=== PATIENT | female | born 1955 | race Caucasian/White ===

== ENCOUNTER 2017-06-29 17:54 | Inpatient (IN) ==
[2017-06-29] MEDS ORDERED: Azithromycin 500 MG in D5% in Water 250 ML IVPB ONE (18:13)
[2017-06-29] MEDS ORDERED: Levofloxacin 750 MG/150 ML 750 MG/150 ML BAG IVPB ONE ×2 (18:18→21:09)
--- NOTE | 2017-06-29 18:19 | Emergency Department Note ---
Disposition Clinical Impression: Shortness of breath, Sepsis, Hypomagnesemia, Bronchitis Fever Qualifiers: Fever type: due to other condition Qualified Code(s): R50.81 - Fever presenting with conditions classified elsewhere Disposition: Admitted As Inpatient Condition: Good Time of Disposition: 21:34 Fever HPI - General Chief Complaint: ED Fever Stated Complaint: cough/fever/chills Nursing Notes Reviewed: Yes Vital Signs Reviewed: Yes - History of Present Illness HPI Narrative: Patient is a 8-year-old female presents via EMS for shortness of breath, fever. Patient has a past history for asthma, CHF, diabetes. Patient recently treated outpatient with Augmentin for UTI 1.5 weeks, patient also complained of productive cough of yellow sputum and shortness of breath times past 3 weeks but was seen 1 week ago and diagnosed with bronchitis. Patient reports fever 103.3 at home and feeling worse. EMS was called and patient brought to ED. - Related Data Home Medications Medication Instructions Recorded Confirmed Albuterol Neb [Proventil Neb] 2.5 mg IH TID 06/29/17 06/29/17 Albuterol Sulfate [Proair Hfa] 2 puff IH Q4H PRN 06/29/17 06/29/17 Alogliptin Benzoate [Alogliptin] 25 mg PO DAILY 06/29/17 06/29/17 Aspirin Enteric Coated [Aspirin EC] 81 mg PO DAILY 06/29/17 06/29/17 Azelastine 0.1% Nasal [place] 1 spray NS BID 06/29/17 06/29/17 [Astelin] Carvedilol 12.5 mg PO DAILY 06/29/17 06/29/17 Citalopram [CeleXA] 20 mg PO DAILY 06/29/17 06/29/17 Fluticasone Propionate [Flovent 1 puff IH BID 06/29/17 06/29/17 Hfa] Furosemide [Lasix] 20 mg PO BID 06/29/17 06/29/17 Lansoprazole [Prevacid] 30 mg PO DAILY 06/29/17 06/29/17 Loratadine [Claritin] 10 mg PO DAILY 06/29/17 06/29/17 Mirtazapine [Remeron] 45 mg PO HS 06/29/17 06/29/17 Mometasone/Formoterol [Dulera 200 2 puff IH BID 06/29/17 06/29/17 Mcg/5 Mcg Inhaler] Montelukast [Singulair] 10 mg PO HS 06/29/17 06/29/17 Potassium Citrate [Urocit-K] 10 meq PO BID 06/29/17 06/29/17 Quinapril HCl [Accupril] 40 mg PO DAILY 06/29/17 06/29/17 Previous Rx's Medication Instructions Recorded Vancomycin Oral Soln [Vancocin] 125 mg PO QID 13 Days 06/30/17 Diclofenac Sodium [Voltaren] 75 mg PO BID PRN #0 07/01/17 Lactobacillus [Culturelle] 2 each PO DAILY #30 07/01/17 Allergies Allergy/AdvReac Type Severity Reaction Status Date / Time Cefaclor [From Ceclor] AdvReac Hives Verified 06/29/17 18:09 clarithromycin [From Biaxin] AdvReac Hives Verified 06/29/17 18:09 morphine AdvReac Vomiting Verified 06/29/17 18:09 All systems ED: reviewed and negative except as stated. Review of Systems: As Per HPI Constitutional: Reports: fever Eyes: Denies: vision change Cardiovascular: Reports: dyspnea on exertion. Denies: chest pain, palpitations , syncope Respiratory: Reports: cough, dyspnea. Denies: wheezes, hemoptysis Gastrointestinal: Reports: nausea. Denies: abdominal pain, vomiting, diarrhea Genitourinary: Reports: urgency, dysuria Musculoskeletal: Denies: back pain, neck pain Integumentary: Denies: rash Neurological: Reports: weakness, vertigo (Periodic worse with movement). 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 Absent: scleral icterus - ENT ENT exam: mucous membranes dry, normal external ear exam, other (Tympanic membranes dull, erythemic, and has fluid behind them. No purulence, not bulging ) - Neck Neck exam: Present: normal inspection, full ROM, trachea midline. Absent: tenderness, meningismus, lymphadenopathy - Chest Chest inspection: Present: normal inspection, symmetric chest wall rise. Absent : tenderness, rash - Respiratory Respiratory exam: Present: normal lung sounds bilaterally. Absent: wheezes, stridor, accessory muscle use, prolonged expiratory phase - Cardiovascular Cardiovascular exam: Present: normal rhythm, tachycardia, normal heart sounds - Abdominal Exam Abdominal exam: Present: soft, Non-Tender, normal bowel sounds. Absent: tenderness, distention, guarding, rebound, rigidity - Neurological Exam Neurological exam: Present: alert, oriented X3, CN II-XII intact. Absent: motor sensory deficit - Skin Skin exam: Present: dry, intact, normal color, other (Patient is hot to the touch). Absent: rash, cyanosis, diaphoresis, pallor, mottled Course - Reevaluation(s) Reevaluation #1: Patient presents with fever, tachycardia and tachypnea. Patient also has recent treatment for UTI and bronchitis which may be possible source of infection. Early starting sepsis workup. Patient has history of CHF and plans to withhold fluid hydration to prevent fluid overload. Patient's blood pressure currently 101/69 and patient has no pallor or sign of anemia and this time Time: 18:45 Reevaluation #2: Patient's chest x-ray does not show pneumonia. Awaiting patient's urine to see if this is source of infection. Patient's on O2 to help O2 sats. Currently he is saturating at 93% and rest Patient states shortness of breath has resolved as long she does not exert herself. Time: 19:30 Reevaluation #3: Patient's labs shows hypomagnesemia. The patient on mag supplementation 2 g IV. Receiving DuoNeb therapy. Patient is on daily prednisone. Time: 19:46 Additional Reevaluation(s): 2130 hrs. Patient's been except for admission to the hospital. Patient understands workup evaluation results and accepts decision to admit. Patient's lungs sounds currently still clear. Patient's currently getting her second liter of fluid. Plan is to go liter by liter until patient gets her 30 mg a kilogram if her CHF can tolerate. - Consultations Consultation #1: Dr. Paz the hospitalist has accepted for admission Time: 21:20 Vital Signs Temperature 103.0 F H 06/29/17 18:09 Pulse Rate 103 06/29/17 18:09 Respiratory Rate 20 06/29/17 18:09 Blood Pressure 101/69 06/29/17 18:09 O2 Sat by Pulse Oximetry 95 06/29/17 18:09 Temperature 98.3 F 07/01/17 04:49 Pulse Rate 70 07/01/17 04:49 Respiratory Rate 24 07/01/17 11:16 Blood Pressure 107/53 07/01/17 04:49 O2 Sat by Pulse Oximetry 96 07/01/17 11:16 Oxygen Delivery Oxygen Delivery Nasal Cannula Fever - MDM Narrative Medical decision making narrative: Ms. Ramirez presented with fever, tachypnea, tachycardia, shortness of breath or concerns for sepsis secondary to possible pneumonia or UTI. Patient is on antibiotic treatment of Augmentin outpatient for UTI and also had productive cough yellow sputum and shortness of breath secondary to bronchitis for the past 3 weeks. Also had a patient's abnormal vitals, patient's workup showed an elevated white count 21.6, hypomagnesemia and elevated lactate of 2.6. Patient' s fluids of 30 mg milligrams per kilogram were initially withheld secondary to patient's history of CHF. Patient's BNP was negative and patient's lung sounds are clear. Patient started on IV fluid hydration but plan is to give a liter normal saline and then reassess to prevent fluid overload. Patient's lactic acid starting to decrease after first liter fluid currently 2.5. Patient's lung sounds still clear. Patient started on second liter IV bolus. Gen. clear source of infection but believed at this point patient's sepsis is secondary to failed outpatient treatment treatment for her UTI with a negative urinalysis secondary to antibiotic treatment or pneumonia that is unable to seeing currently secondary to patient being dry. Current plan still is admittance for treatment. Patient is allergic to cephalosporins and clarithromycin. Patient started on Levaquin and aztreonam after discussion with Dr. Paz to the hospitalist who accepted patient for admission. - Lab Data Lab results reviewed: Yes I reviewed the patient's lab results. Lab results narrative: Short CBC 06/29/17 Range/Units 18:47 WBC 21.6 H (4.3-11.1) K/mcL Hgb 13.1 (11.5-15.4) g/dL Hct 40.0 (35.3-44.9) % Plt Count 271 (140-400) K/mcL Neutrophils # 18.8 H (1.6-8.9) K/mcL BMP 06/29/17 Range/Units 18:47 Sodium 139 (136-145) mEq/L Potassium 3.5 (3.5-4.5) mEq/L Chloride 102 (98-109) mEq/L Carbon Dioxide 26 (19-29) mEq/L BUN 22 H (7-20) mg/dL Creatinine 1.09 (0.57-1.11) mg/dL Glucose 184 H (70-99) mg/dL Calcium 9.2 (8.6-10.8) mg/dL Urine 06/29/17 Range/Units 20:10 Urine Color Yellow (Yellow) Urine Clarity Clear (Clear) Urine pH 6.5 (5.0-8.0) pH Units Ur Specific [place] 1.021 (1.010-1.025) Urine Protein Negative (Neg-Trace) mg/dL Urine Glucose (UA) Normal (Normal) mg/dL Result diagrams: 07/01/17 11:08 06/30/17 05:35 Lab Results 06/29/17 06/29/17 06/29/17 Range/Units 18:47 18:47 18:47 WBC 21.6 H (4.3-11.1) K/mcL RBC 4.75 (3.82-4.97) M/mcL Hgb 13.1 (11.5-15.4) g/dL Hct 40.0 (35.3-44.9) % MCV 84.2 (83.0-100.0) fL MCH 27.6 L (28.0-33.3) pg MCHC 32.8 (31.6-35.5) g/dL RDW 15.3 H (11.5-14.5) % Plt Count 271 (140-400) K/mcL MPV 9.6 (9.4-12.4) fL Immature Gran % 0.9 (0-4) % Seg Neutrophils % 86.8 % Lymphocytes % 5.5 % Monocytes % 4.9 % Eosinophils % 1.7 % Basophils % 0.2 % Neutrophils # 18.8 H (1.6-8.9) K/mcL Lymphocytes # 1.2 (0.6-4.6) K/mcL Monocytes # 1.1 (0.0-1.3) K/mcL Eosinophils # 0.4 (0.0-0.6) K/mcL Basophils # 0.1 (0.0-0.2) K/mcL APTT 27.6 (26.0-36.0) Seconds Sodium 139 (136-145) mEq/L Potassium 3.5 (3.5-4.5) mEq/L Chloride 102 (98-109) mEq/L Carbon Dioxide 26 (19-29) mEq/L BUN 22 H (7-20) mg/dL Creatinine 1.09 (0.57-1.11) mg/dL Est GFR ( Amer) > 60 (> 60) Est GFR (Non-Af Amer) 51 L (> 60) BUN/Creatinine Ratio 20 (6-26) Glucose 184 H (70-99) mg/dL POC Glucose (58-89) Calculated Osmolality 296 (280-300) Lactic Acid (0.5-2.2) mmol/L Calcium 9.2 (8.6-10.8) mg/dL Phosphorus 1.5 L (2.3-4.7) mg/dL Magnesium 1.2 L (1.6-2.6) mg/dL Total Bilirubin (0.2-1.2) mg/dL Direct Bilirubin (0.0-0.5) mg/dL Indirect Bilirubin (0.0-1.2) mg/dL AST (5-34) Units/L ALT (0-55) Units/L Alkaline Phosphatase (38-126) Units/L B-Natriuretic Peptide (0-100) pg/mL Serum Total Protein (6.0-8.3) g/dL Albumin (3.5-5.0) g/dL Globulin (2.4-3.5) g/dL Albumin/Globulin Ratio (1.1-2.2) Procalcitonin (<=0.10) ng/mL Urine Color (Yellow) Urine Clarity (Clear) Urine pH (5.0-8.0) pH Units Ur Specific [place] (1.010-1.025) Urine Protein (Neg-Trace) mg/dL Urine Glucose (UA) (Normal) mg/dL Urine Ketones (Negative) mg/dL Urine Blood (Negative) Urine Nitrite (Negative) Urine Bilirubin (Negative) Urine Urobilinogen (Normal) mg/dL Ur Leukocyte Esterase (Negative) Ur Culture Indicated? (NO) 06/29/17 06/29/17 06/29/17 Range/Units 18:47 18:47 18:47 WBC (4.3-11.1) K/mcL RBC (3.82-4.97) M/mcL Hgb (11.5-15.4) g/dL Hct (35.3-44.9) % MCV (83.0-100.0) fL MCH (28.0-33.3) pg MCHC (31.6-35.5) g/dL RDW (11.5-14.5) % Plt Count (140-400) K/mcL MPV (9.4-12.4) fL Immature Gran % (0-4) % Seg Neutrophils % % Lymphocytes % % Monocytes % % Eosinophils % % Basophils % % Neutrophils # (1.6-8.9) K/mcL Lymphocytes # (0.6-4.6) K/mcL Monocytes # (0.0-1.3) K/mcL Eosinophils # (0.0-0.6) K/mcL Basophils # (0.0-0.2) K/mcL APTT (26.0-36.0) Seconds Sodium (136-145) mEq/L Potassium (3.5-4.5) mEq/L Chloride (98-109) mEq/L Carbon Dioxide (19-29) mEq/L BUN (7-20) mg/dL Creatinine (0.57-1.11) mg/dL Est GFR ( Amer) (> 60) Est GFR (Non-Af Amer) (> 60) BUN/Creatinine Ratio (6-26) Glucose (70-99) mg/dL POC Glucose (58-89) Calculated Osmolality (280-300) Lactic Acid 2.6 H (0.5-2.2) mmol/L Calcium (8.6-10.8) mg/dL Phosphorus (2.3-4.7) mg/dL Magnesium (1.6-2.6) mg/dL Total Bilirubin 0.5 (0.2-1.2) mg/dL Direct Bilirubin 0.2 (0.0-0.5) mg/dL Indirect Bilirubin 0.3 (0.0-1.2) mg/dL AST 24 (5-34) Units/L ALT 36 (0-55) Units/L Alkaline Phosphatase 127 H (38-126) Units/L B-Natriuretic Peptide < 10 (0-100) pg/mL Serum Total Protein 7.2 (6.0-8.3) g/dL Albumin 3.3 L (3.5-5.0) g/dL Globulin 3.9 H (2.4-3.5) g/dL Albumin/Globulin Ratio 0.8 L (1.1-2.2) Procalcitonin (<=0.10) ng/mL Urine Color (Yellow) Urine Clarity (Clear) Urine pH (5.0-8.0) pH Units Ur Specific [place] (1.010-1.025) Urine Protein (Neg-Trace) mg/dL Urine Glucose (UA) (Normal) mg/dL Urine Ketones (Negative) mg/dL Urine Blood (Negative) Urine Nitrite (Negative) Urine Bilirubin (Negative) Urine Urobilinogen (Normal) mg/dL Ur Leukocyte Esterase (Negative) Ur Culture Indicated? (NO) 06/29/17 06/29/17 06/29/17 Range/Units 20:07 20:10 22:39 WBC (4.3-11.1) K/mcL RBC (3.82-4.97) M/mcL Hgb (11.5-15.4) g/dL Hct (35.3-44.9) % MCV (83.0-100.0) fL MCH (28.0-33.3) pg MCHC (31.6-35.5) g/dL RDW (11.5-14.5) % Plt Count (140-400) K/mcL MPV (9.4-12.4) fL Immature Gran % (0-4) % Seg Neutrophils % % Lymphocytes % % Monocytes % % Eosinophils % % Basophils % % Neutrophils # (1.6-8.9) K/mcL Lymphocytes # (0.6-4.6) K/mcL Monocytes # (0.0-1.3) K/mcL Eosinophils # (0.0-0.6) K/mcL Basophils # (0.0-0.2) K/mcL APTT (26.0-36.0) Seconds Sodium (136-145) mEq/L Potassium (3.5-4.5) mEq/L Chloride (98-109) mEq/L Carbon Dioxide (19-29) mEq/L BUN (7-20) mg/dL Creatinine (0.57-1.11) mg/dL Est GFR ( Amer) (> 60) Est GFR (Non-Af Amer) (> 60) BUN/Creatinine Ratio (6-26) Glucose (70-99) mg/dL POC Glucose (58-89) Calculated Osmolality (280-300) Lactic Acid 2.5 H (0.5-2.2) mmol/L Calcium (8.6-10.8) mg/dL Phosphorus (2.3-4.7) mg/dL Magnesium (1.6-2.6) mg/dL Total Bilirubin (0.2-1.2) mg/dL Direct Bilirubin (0.0-0.5) mg/dL Indirect Bilirubin (0.0-1.2) mg/dL AST (5-34) Units/L ALT (0-55) Units/L Alkaline Phosphatase (38-126) Units/L B-Natriuretic Peptide (0-100) pg/mL Serum Total Protein (6.0-8.3) g/dL Albumin (3.5-5.0) g/dL Globulin (2.4-3.5) g/dL Albumin/Globulin Ratio (1.1-2.2) Procalcitonin 1.87 H (<=0.10) ng/mL Urine Color Yellow (Yellow) Urine Clarity Clear (Clear) Urine pH 6.5 (5.0-8.0) pH Units Ur Specific [place] 1.021 (1.010-1.025) Urine Protein Negative (Neg-Trace) mg/dL Urine Glucose (UA) Normal (Normal) mg/dL Urine Ketones Negative (Negative) mg/dL Urine Blood Negative (Negative) Urine Nitrite Negative (Negative) Urine Bilirubin Negative (Negative) Urine Urobilinogen Normal (Normal) mg/dL Ur Leukocyte Esterase Negative (Negative) Ur Culture Indicated? NO (NO) 06/29/17 Range/Units 23:06 WBC (4.3-11.1) K/mcL RBC (3.82-4.97) M/mcL Hgb (11.5-15.4) g/dL Hct (35.3-44.9) % MCV (83.0-100.0) fL MCH (28.0-33.3) pg MCHC (31.6-35.5) g/dL RDW (11.5-14.5) % Plt Count (140-400) K/mcL MPV (9.4-12.4) fL Immature Gran % (0-4) % Seg Neutrophils % % Lymphocytes % % Monocytes % % Eosinophils % % Basophils % % Neutrophils # (1.6-8.9) K/mcL Lymphocytes # (0.6-4.6) K/mcL Monocytes # (0.0-1.3) K/mcL Eosinophils # (0.0-0.6) K/mcL Basophils # (0.0-0.2) K/mcL APTT (26.0-36.0) Seconds Sodium (136-145) mEq/L Potassium (3.5-4.5) mEq/L Chloride (98-109) mEq/L Carbon Dioxide (19-29) mEq/L BUN (7-20) mg/dL Creatinine (0.57-1.11) mg/dL Est GFR ( Amer) (> 60) Est GFR (Non-Af Amer) (> 60) BUN/Creatinine Ratio (6-26) Glucose (70-99) mg/dL POC Glucose 183 H (58-89) Calculated Osmolality (280-300) Lactic Acid (0.5-2.2) mmol/L Calcium (8.6-10.8) mg/dL Phosphorus (2.3-4.7) mg/dL Magnesium (1.6-2.6) mg/dL Total Bilirubin (0.2-1.2) mg/dL Direct Bilirubin (0.0-0.5) mg/dL Indirect Bilirubin (0.0-1.2) mg/dL AST (5-34) Units/L ALT (0-55) Units/L Alkaline Phosphatase (38-126) Units/L B-Natriuretic Peptide (0-100) pg/mL Serum Total Protein (6.0-8.3) g/dL Albumin (3.5-5.0) g/dL Globulin (2.4-3.5) g/dL Albumin/Globulin Ratio (1.1-2.2) Procalcitonin (<=0.10) ng/mL Urine Color (Yellow) Urine Clarity (Clear) Urine pH (5.0-8.0) pH Units Ur Specific [place] (1.010-1.025) Urine Protein (Neg-Trace) mg/dL Urine Glucose (UA) (Normal) mg/dL Urine Ketones (Negative) mg/dL Urine Blood (Negative) Urine Nitrite (Negative) Urine Bilirubin (Negative) Urine Urobilinogen (Normal) mg/dL Ur Leukocyte Esterase (Negative) Ur Culture Indicated? (NO) - Radiology Data Radiology results reviewed: Yes I reviewed the patient's radiology results. Chest X-Ray 06/29/17 18:14 IMPRESSION: No acute process. D/ / Michelle Hair MD / Michelle Hair MD Interpreting Provider: Michelle Hair MD - EKG Data EKG attestation: Yes I reviewed and interpreted this EKG. EKG results narrative: EKG taken 06/29/2017 at 1904 hrs. shows a sinus tachycardia at a rate of 10 4 bpm. No QRS widening or QT prolongation no ST elevations or depressions in any leads. Patient has poor R-wave progression lateral leads and previous EKG for comparison taken 06/22/2017 shows a sinus rhythm with same morphology as today' s. Today's EKG just a little faster Attestation Statement - Attestation Attestation: I examined this patient and my medical decision-making was reviewed with the Resident Physician. I agree with the documented findings, disposition and treatment plan as described except to the extent set forth below. Febrile, +SIRS, negative qSOFA. Has some respiratory symptoms, CXR negative. Also has urinary sx, UA neg but is on abx, which could mask findings of UTI on UA. The possibility of outpatient rx failure of UTI is high on the list of possibilities, rx chosen with this in mind.
[2017-06-29 19:00] LABS: Basophils # 0.1 K/mcL (0.0-0.2); Basophils % 0.2 %; Eosinophils # 0.4 K/mcL (0.0-0.6); Eosinophils % 1.7 %; Hemoglobin 13.1 g/dL (11.5-15.4); Immature Granulocytes % 0.9 % (0-4); Lymphocytes # 1.2 K/mcL (0.6-4.6); Lymphocytes % 5.5 %; Mean Corpuscular HGB Conc 32.8 g/dL (31.6-35.5); Mean Corpuscular Hemoglobin 27.6 pg (28.0-33.3); Mean Corpuscular Volume 84.2 fL (83.0-100.0); Mean Platelet Volume 9.6 fL (9.4-12.4); Monocytes # 1.1 K/mcL (0.0-1.3); Monocytes % 4.9 %; Neutrophils # 18.8 K/mcL (1.6-8.9); Platelet Count 271 K/mcL (140-400); Red Blood Count 4.75 M/mcL (3.82-4.97); Red Cell Distribution Width 15.3 % (11.5-14.5); Segmented Neutrophils % 86.8 %
[2017-06-29 19:14] LABS: BUN/Creatinine Ratio 20 (6-26); Blood Urea Nitrogen 22 mg/dL (7-20); Calcium 9.2 mg/dL (8.6-10.8); Carbon Dioxide 26 mEq/L (19-29); Chloride 102 mEq/L (98-109); Glucose 184 mg/dL (70-99); Magnesium 1.2 mg/dL (1.6-2.6); Osmolality,Calculated 296 (280-300); Phosphorous 1.5 mg/dL (2.3-4.7); Potassium 3.5 mEq/L (3.5-4.5); Sodium 139 mEq/L (136-145); eGFR For African Americans > 60 (> 60); eGFR For Non-African Americans 51 (> 60)
[2017-06-29] MEDS ORDERED: 0.9 % Sodium Chloride 1,000 ML IVC ONE ×2 (19:34→21:11)
[2017-06-29] MEDS ORDERED: *HR* Promethazine 25 MG/ML VIAL IVP ONE (19:41)
[2017-06-29] MEDS ORDERED: Ipratropium/Albuterol Neb 3 ML IH ONE (19:42)
[2017-06-29 20:21] LABS: Bilirubin,Urine Negative (Negative); Blood,Urine Negative (Negative); Clarity,Urine Clear (Clear); Color,Urine Yellow (Yellow); Glucose,Urine (UA) Normal (Normal); Ketones,Urine Negative (Negative); Leukocyte Esterase,Urine Negative (Negative); Nitrite,Urine Negative (Negative); PH,Urine 6.5 pH Units (5.0-8.0); Protein,Urine Negative (Neg-Trace); Specific Gravity,Urine 1.021 (1.010-1.025); Urobilinogen,Urine Normal (Normal)
[2017-06-29] MEDS ORDERED: Gentamicin 400 MG in 0.9 % Sodium Chloride 100 ML IVPB ONE (21:09)
[2017-06-29] MEDS ORDERED: Ibuprofen 400 MG TABLET PO ONE (21:11)
[2017-06-29] MEDS ORDERED: Acetaminophen 325 MG TABLET PO PRN (21:51)
[2017-06-29] MEDS ORDERED: Naloxone 0.4 MG/ML INJ IVP PRN (21:51)
[2017-06-29] MEDS ORDERED: Ondansetron ODT 4 MG TAB.RAPDIS SL PRN (21:51)
[2017-06-29] MEDS ORDERED: Ibuprofen 400 MG TABLET PO PRN (21:51)
[2017-06-29] MEDS ORDERED: *HR* Dextrose 50 % in Water (Syg) 50 ML SYRINGE IVP PRN (21:54)
[2017-06-29] MEDS ORDERED: Dextrose Gel 15 GM PO PRN ×2 (21:54)
[2017-06-29] MEDS ORDERED: D5% in Water 1,000 ML IVC PRN (21:54)
[2017-06-29] MEDS ORDERED: Aztreonam 1,000 MG in D5% in Water (Mini-Bag+) 100 ML IVPB ONE (22:00)
[2017-06-29] MEDS ORDERED: 0.9 % Sodium Chloride 1,000 ML IVC SCH (22:00)
--- NOTE | 2017-06-29 22:05 | Internal Med History&Physical ---
<Alo Ambriz - Last Filed: 06/29/17 22:01> Date of Encounter: 06/29/17 Time of Encounter: 22:01 Assessment and Plan (1) Sepsis Current visit: Yes Status: Acute 62 -year-old female presents with chief complaint of fever Patient is tachycardic, fever 103, wbc 26 reports receiving amoxicillin for UTI and Augmentin for bronchitis in the past 2 weeks. Reports foul-smelling new onset diarrhea this morning. Chest x-ray negative. Lung exam clear Urinalysis negative for infection Source of infection: PNA, UTI, infectious diarreha (c-diff) Requiring 2 L supplemental oxygen Plan: Patient will be on Levaquin and aztreonam allergies allergic to b-lactams Stool study Continue supplemental oxygen CBC, BMP in the morning Procalcitonin Qualifiers: Sepsis type: sepsis due to unspecified organism Qualified Code(s): A41.9 - Sepsis, unspecified organism (2) PNA (pneumonia) Current visit: Yes Status: Suspected Patient states that for the past week she has had worsening shortness of breath and productive yellow sputum. One week ago she was started on Augmentin for bronchitis. States her symptoms have not improved. Currently on 2 L oxygen. She does not use supplemental oxygen at home. Patient has history of sleep apnea and is compliant with CPAP. previous tobacco use 25 years ago with 4year pack history. Plan: Patient will be on aztreonam on Levaquin. Continue monitoring respiratory status. PROcalcitonin Wean off oxygen, may need 6min walk continue home inhaler and start duoneb. Qualifiers: Pneumonia type: due to unspecified organism Laterality: unspecified laterality Lung location: unspecified part of lung Qualified Code(s): J18.9 - Pneumonia, unspecified organism (3) UTI (urinary tract infection) Current visit: Yes Status: Suspected Patient was treated for UTI 2 weeks ago with amoxicillin At that time she had symptoms of dysuria, foul-smelling urine Currently she denies these symptoms Urinalysis is negative for UTI but this could be secondary to current antibiotic use. This is part of the differential diagnosis for sepsis however less likely. Plan: Patient will be on Levaquin and aztreonam. Qualifiers: Urinary tract infection type: acute cystitis Hematuria presence: without hematuria Qualified Code(s): N30.00 - Acute cystitis without hematuria (4) Diabetes Current visit: Yes Status: Chronic hx of DM2 last hgA1c 6.2 controlled plan: ACHS diet with low dose SSI. Qualifiers: Diabetes mellitus type: type 2 Diabetes mellitus complication status: with unspecified complications Diabetes mellitus residential insulin use: without residential use Qualified Code(s): E11.8 - Type 2 diabetes mellitus with unspecified complications (5) Hypertension Current visit: Yes Status: Chronic presented wiht BP in 100s systolic which improved to 120s sytolic with 2L NS plan: continue home medications Qualifiers: Hypertension type: essential hypertension Qualified Code(s): I10 - Essential (primary) hypertension (6) CHF (congestive heart failure) Current visit: Yes Status: Chronic hx of diastolic CHF not inexacerbation: no lung crackles or LE edema BNP WNL plan: continue home jules inhibitor hold lasix as patient is likley volume depleted from diarrhea IVF running at 100cc/ hr will receive total of 3000 mL (includes ER fluid bolus ) Qualifiers: Congestive heart failure type: diastolic Congestive heart failure chronicity: chronic Qualified Code(s): I50.32 - Chronic diastolic (congestive ) heart failure (7) Hypomagnesemia Current visit: Yes Status: Acute 2nd to diarrhea plan: replacing recheck in am (8) DVT prophylaxis Current visit: Yes Status: Acute heparin SQ Internal Medicine - H&P: HPI Chief complaint: fever Admitted From: Home Plans for Post Hospital Care: Home History of present illness: Ms. Ramirez is a 62 year old female presents with chief complaint of fever. Patient states 2 weeks ago she was diagnosed with UTI and started on amoxicillin which improved her symptoms of dysuria. Furthermore one week ago patient had shortness of breath increased yellow productive sputum and diagnosed with bronchitis and started on Augmentin. In the past week patient states her symptoms of shortness of breath, productive sputum have not improved with Augmentin. This afternoon patient started having intense chills, diaphoresis and checked her temperature which was 103.3. She also had multiple bouts of diarrhea described as watery, foul-smelling, non-mucousy, nonbloody. Patient denies headache, confusion blurry vision, ear pain, sore throat, rhinorrhea, neck pain, chest pain, palpitations, abdominal pain, leg pain, rash , open sores or wounds, back pain, dysuria, urinary frequency, urinary urgency, numbness, tingling, or lower extremity swelling. Past Med Surg Social Fam HX - Past Medical History Medical history: asthma, CHF, diabetes, GERD, hypertension, other (sleep apnea) Psychiatric history: no psych history - Past Surgical History Surgical History: cholecystectomy, other (bening ovarin tumor resceted, benin lung nodule resected, tonsillectomy ) - Social History Smoking Status: Never smoker Smokeless Tobacco Status: No Alcohol use: none Drug use: none - Family History Father Hx Family Cardiac Disorders: Yes Internal Medicine - H&P: Meds Albuterol Neb [Proventil Neb] 2.5 mg IH TID 06/29/17 [History] Albuterol Sulfate [Proair Hfa] 2 puff IH Q4H PRN 06/29/17 [History] Alogliptin Benzoate [Alogliptin] 25 mg PO DAILY 06/29/17 [History] Amoxicillin/Clavulanate [Augmentin] 875 mg PO BID 06/29/17 [History] Aspirin Enteric Coated [Aspirin EC] 81 mg PO DAILY 06/29/17 [History] Azelastine 0.1% Nasal [place] [Astelin] 1 spray NS BID 06/29/17 [History] Carvedilol 12.5 mg PO DAILY 06/29/17 [History] Citalopram [CeleXA] 20 mg PO DAILY 06/29/17 [History] Diclofenac Sodium [Voltaren] 75 mg PO BID 06/29/17 [History] Fluticasone Propionate [Flovent Hfa] 1 puff IH BID 06/29/17 [History] Furosemide [Lasix] 20 mg PO BID 06/29/17 [History] Lansoprazole [Prevacid] 30 mg PO DAILY 06/29/17 [History] Loratadine [Claritin] 10 mg PO DAILY 06/29/17 [History] Mirtazapine [Remeron] 45 mg PO HS 06/29/17 [History] Mometasone/Formoterol [Dulera 200 Mcg/5 Mcg Inhaler] 2 puff IH BID 06/29/17 [ History] Montelukast [Singulair] 10 mg PO HS 06/29/17 [History] Potassium Citrate [Urocit-K] 10 meq PO BID 06/29/17 [History] Quinapril HCl [Accupril] 40 mg PO DAILY 06/29/17 [History] 3 Allergy/AdvReac Type Severity Reaction Status Date / Time Cefaclor [From Ceclor] AdvReac Hives Verified 06/29/17 18:09 clarithromycin [From Biaxin] AdvReac Hives Verified 06/29/17 18:09 morphine AdvReac Vomiting Verified 06/29/17 18:09 All Systems PM: A 10-system review of systems was performed and is negative for pertinent findings except as documented above in the HPI. - Constitutional Vitals: Temp Pulse Resp BP Pulse Ox 102.5 F H 99 20 119/62 95 06/29/17 20:54 06/29/17 20:54 06/29/17 20:54 06/29/17 20:54 06/29/17 20:54 - Other Additional findings: General: Alert and oriented to place time and situation. Without distress, diaphoretic HEENT: Head atraumatic, normocephalic, EOMI, PERRLA, neck nontender to palpation , absent Lymphadenopathy, Moist Mucous Membranes, Heart: Sinus tachycardia without murmur Lungs: Clear to auscultation bilaterally Abdomen: Soft nontender, nondistended positive bowel sounds Skin: Absent rash, absent open sores or wounds Back: Nontender to palpation Extremities: Absent pedal edema, Neuro: Cranial nerves II through XII intact, sensation equal bilaterally, strength upper and lower extremity 5/5, alert oriented 3 Vascular: Pedal and radial pulses 2 out of 4 Internal Med - H&P Results - Labs CBC & Chem 7: 06/29/17 18:47 06/29/17 18:47 Labs: Short CBC 06/29/17 Range/Units 18:47 WBC 21.6 H (4.3-11.1) K/mcL Hgb 13.1 (11.5-15.4) g/dL Hct 40.0 (35.3-44.9) % Plt Count 271 (140-400) K/mcL Neutrophils # 18.8 H (1.6-8.9) K/mcL BMP 06/29/17 18:47 Sodium 139 Potassium 3.5 Chloride 102 Carbon Dioxide 26 BUN 22 H Creatinine 1.09 Glucose 184 H Calcium 9.2 Urine 06/29/17 Range/Units 20:10 Urine Color Yellow (Yellow) Urine Clarity Clear (Clear) Urine pH 6.5 (5.0-8.0) pH Units Ur Specific [place] 1.021 (1.010-1.025) Urine Protein Negative (Neg-Trace) mg/dL Urine Glucose (UA) Normal (Normal) mg/dL - Impressions ITS Impressions Chest X-Ray 06/29/17 18:14 IMPRESSION: No acute process. D/ / Michelle Hair MD / Michelle Hair MD Interpreting Provider: Michelle Hair MD <Fahad Paz - Last Filed: 06/29/17 23:34> Date of Encounter: 06/29/17 Internal Medicine - H&P: HPI History of present illness: Ms. Ramirez is a 62 year old female All Systems PM: A 10-system review of systems was performed and is negative for pertinent findings except as documented above in the HPI. - Constitutional Vitals: Temp Pulse Resp BP Pulse Ox 98.7 F 88 19 106/56 94 06/29/17 23:18 06/29/17 23:18 06/29/17 23:18 06/29/17 23:18 06/29/17 23:18 Internal Med - H&P Results - Labs CBC & Chem 7: 06/29/17 18:47 06/29/17 18:47 - Attending Attestation I examined this patient and my medical decision-making was reviewed with the Resident Physician, Dr. Alo Middleton. I agree with the documented findings, disposition and treatment plan as described except to the extent set forth below. I have independently obtained history and examined the patient and my findings are summarized below: Patient presented to the hospital for evaluation of shortness of breath and high fever. On exam she is in no acute distress, speaking in full sentences. Heart is regular. Lungs are clear. Abdomen is obese, soft, nontender Assessment: Severe sepsis secondary to either bronchitis pneumonia or less likely severe C. difficile colitis. Plan: We will admit the patient to our service. We will treat her with IV fluids 30 mL per KG. Broad spectrum IV antibiotics with Levaquin and aztreonam. Consider adding oral vancomycin for severe C. difficile. Patient reported some diarrhea which now has stopped but she does have fever, elevated white count and antibiotic use in the last 2 weeks.
[2017-06-29] MEDS: *HR* Heparin 5,000 UNIT/ML VIAL SQ SCH (23:07)
[2017-06-29] MEDS: Aztreonam 1,000 MG in D5% in Water (Mini-Bag+) 100 ML IVPB SCH (23:08)
[2017-06-29 23:56] LABS: Albumin 3.3 g/dL (3.5-5.0); Albumin/Globulin Ratio 0.8 (1.1-2.2); Bilirubin,Direct 0.2 mg/dL (0.0-0.5); Bilirubin,Indirect 0.3 mg/dL (0.0-1.2); Bilirubin,Total 0.5 mg/dL (0.2-1.2); Globulin 3.9 g/dL (2.4-3.5); Total Protein 7.2 g/dL (6.0-8.3)
[2017-06-29] MEDS: Vancomycin Oral Soln 250 MG/5 ML UDC PO SCH (23:58)
[2017-06-30] MEDS ORDERED: 0.9 % Sodium Chloride 1,000 ML IVC ONE (00:37)
[2017-06-30] MEDS: Albuterol 2.5 MG/3 ML NEBULIZER IH SCH ×3 (00:42→16:56)
[2017-06-30] MEDS: Ipratropium/Albuterol Neb 3 ML IH SCH ×4 (03:49→23:15)
[2017-06-30] MEDS: *HR* Heparin 5,000 UNIT/ML VIAL SQ SCH ×3 (05:45→20:35)
[2017-06-30 06:06] LABS: Hematocrit 38.2 % (35.3-44.9); Hemoglobin 12.2 g/dL (11.5-15.4); Mean Corpuscular HGB Conc 31.9 g/dL (31.6-35.5); Mean Corpuscular Hemoglobin 27.4 pg (28.0-33.3); Mean Corpuscular Volume 85.7 fL (83.0-100.0); Mean Platelet Volume 9.7 fL (9.4-12.4); Platelet Count 262 K/mcL (140-400); Red Blood Count 4.46 M/mcL (3.82-4.97); Red Cell Distribution Width 15.7 % (11.5-14.5)
[2017-06-30 06:22] LABS: BUN/Creatinine Ratio 17 (6-26); Blood Urea Nitrogen 15 mg/dL (7-20); Calcium 8.5 mg/dL (8.6-10.8); Carbon Dioxide 24 mEq/L (19-29); Chloride 109 mEq/L (98-109); Glucose 113 mg/dL (70-99); Osmolality,Calculated 294 (280-300); Potassium 3.6 mEq/L (3.5-4.5); Sodium 141 mEq/L (136-145); eGFR For African Americans > 60 (> 60); eGFR For Non-African Americans > 60 (> 60)
[2017-06-30 06:29] LABS: Eosinophils # 0.5 K/mcL (0.0-0.6); Lymphocytes # 6.7 K/mcL (0.6-4.6); Neutrophils # 18.1 K/mcL (1.6-8.9); Platelet Estimate Normal (Normal); Reactive Lymphocytes Present (Not Present)
[2017-06-30] MEDS ORDERED: Pantoprazole 40 MG VIAL IVP SCH (06:30)
[2017-06-30] MEDS ORDERED: Furosemide 20 MG TABLET PO SCH (08:00)
[2017-06-30] MEDS: Lisinopril 20 MG TABLET PO SCH (08:40)
[2017-06-30] MEDS: Aztreonam 1,000 MG in D5% in Water (Mini-Bag+) 100 ML IVPB SCH (08:40)
[2017-06-30] MEDS: Potassium Citrate 10 MEQ TABLET.ER PO SCH ×2 (08:40→20:35)
[2017-06-30] MEDS: Aspirin Enteric Coated 81 MG Tablet PO SCH (08:40)
[2017-06-30] MEDS: Insulin LISPRO 300 UNITS/3 ML VIAL SQ SCH ×3 (08:41→16:41)
[2017-06-30 11:51] LABS: C.difficile Toxin A/B by PCR See reflex test (Not detect); Campylobacter by PCR Not detected (Not detect)
[2017-06-30 11:52] LABS: Adenovirus F 40/41 PCR Not detected (Not detect); Astrovirus PCR Not detected (Not detect); Cryptosporidium by PCR Not detected (Not detect); Cyclospora cayetanensis PCR Not detected (Not detect); E. coli O157 by PCR Not detected (Not detect); Entamoeba histolytica PCR Not detected (Not detect); Enteroaggregative E.coli(EAEC) Not detected (Not detect); Enteropathogenic E.coli(EPEC) ***DETECTED*** (Not detect); Enterotoxigenic E.coli (ETEC) Not detected (Not detect); Giardia lamblia PCR Not detected (Not detect); Norovirus GI/GII PCR Not detected (Not detect); Plesiomonas shigelloides PCR Not detected (Not detect); Rotavirus A PCR Not detected (Not detect); Salmonella PCR Not detected (Not detect); Sapovirus PCR Not detected (Not detect); Shig/EnteroinvasiveE coli EIEC Not detected (Not detect); Shigalike tox-prod E coli STEC Not detected (Not detect); Vibrio PCR Not detected (Not detect); Vibrio cholerae PCR Not detected (Not detect); Yersinia enterocolitica PCR Not detected (Not detect)
[2017-06-30] MEDS: Vancomycin Oral Soln 250 MG/5 ML UDC PO SCH (13:06)
--- NOTE | 2017-06-30 15:33 | Electrocardiograph Report ---
[place] [id number] Test Date: 2017-06-29 Pat Name: Vivian Ramirez Department: 0 Room: 2NE34 Gender: F [employer] Worker: Ambrocio : 1955 Requested By: Irvin Feliciano Order Number: [id number] Reading MD: Betzy Valentin Measurements Intervals [place] Rate: 104 P: 34 LA: 138 QRS: 19 QRSD: 92 T: 28 QT: 343 QTc: 403 Interpretive Statements SINUS TACHYCARDIA MINIMAL ST DEPRESSION ABNORMAL RHYTHM ECG Electronically Signed On 06-30-2017 15:31:24 EDT by Betzy Valentin
--- NOTE | 2017-06-30 15:56 | Internal Med Progress Note ---
Date of Encounter: 06/30/17 Time of Encounter: 15:56 - Assessment and plan (1) C. difficile colitis Current Visit: Yes Status: Acute Assessment and plan: Patient has history of diarrhea that was performed. Stool for C. difficile was positive. Patient has severe C. difficile as evidenced by elevated white count. Patient has been started on by mouth vancomycin. Continue the same. Probiotics. High risk due to risk of worsening sepsis and the need for antibody treatment. Patient is at risk of complications including ileus due to C. difficile. (2) Sepsis Current Visit: Yes Status: Acute Assessment and plan: Sepsis on presentation due to C. difficile. Currently improving. Management as above. Qualifiers: Sepsis type: sepsis due to unspecified organism Qualified Code(s): A41.9 - Sepsis, unspecified organism (3) Asthma Current Visit: Yes Status: Chronic Assessment and plan: Breathing treatments. Continue home medications. Qualifiers: Asthma severity: mild persistent Asthma complication type: uncomplicated Qualified Code(s): J45.30 - Mild persistent asthma, uncomplicated (4) Hypomagnesemia Current Visit: Yes Status: Acute Assessment and plan: Replaced (5) Diabetes Current Visit: Yes Status: Chronic Assessment and plan: Controlled blood sugar. Continue current medications. Qualifiers: Diabetes mellitus type: type 2 Diabetes mellitus complication status: without complication Diabetes mellitus rat exterminator insulin use: without rat exterminator use Qualified Code(s): E11.9 - Type 2 diabetes mellitus without complications (6) Hypertension Current Visit: Yes Status: Chronic Assessment and plan: Controlled blood pressure. Continues current medications. Qualifiers: Hypertension type: essential hypertension Qualified Code(s): I10 - Essential (primary) hypertension - Subjective Interval history: Patient states that she feels better than yesterday. Her diarrhea stopped yesterday. Her C. difficile is positive today. She denies any nausea or vomiting. She reports some back pain from lying in the bed. She denies having any lightheadedness. - Constitutional Vitals: Temp Pulse Resp BP Pulse Ox 98.6 F 65 18 122/69 97 06/30/17 10:59 06/30/17 10:59 06/30/17 10:59 06/30/17 10:59 06/30/17 10:59 Exam: Gen.: Lying in bed. No acute distress. Chest: Clear to auscultation bilaterally. No adventitious sounds present. CVS: First and second heart sounds present. No murmurs, rubs or gallops. Abdomen: Soft, nontender, obese. Bowel sounds present. No hepatosplenomegaly. Skin: No decubitus ulcers appreciated. Internal Medicine: Result - Labs CBC & Chem 7: 06/30/17 05:35 06/30/17 05:35 Labs: Short CBC 06/30/17 Range/Units 05:35 WBC 25.8 H (4.3-11.1) K/mcL Hgb 12.2 (11.5-15.4) g/dL Hct 38.2 (35.3-44.9) % Plt Count 262 (140-400) K/mcL Neutrophils # 18.1 H (1.6-8.9) K/mcL BMP 06/30/17 05:35 Sodium 141 Potassium 3.6 Chloride 109 Carbon Dioxide 24 BUN 15 Creatinine 0.90 Glucose 113 H Calcium 8.5 L Consult Discharge Plan - Plan Referrals: NONE,PCP [Primary Care Provider] - Prescriptions: Vancomycin Oral Soln [Vancocin] 125 mg PO QID 13 Days
[2017-06-30] MEDS: Vancomycin Oral Soln 250 MG/2.5 ML UDC PO SCH ×2 (16:49→20:35)
[2017-06-30] MEDS ORDERED: Levofloxacin 750 MG/150 ML 750 MG/150 ML BAG IVPB SCH ×2 (19:43→21:00)
[2017-06-30] MEDS ORDERED: Mirtazapine 15 MG TABLET PO SCH (21:00)
[2017-06-30] MEDS ORDERED: Insulin LISPRO 300 UNITS/3 ML VIAL SQ SCH (21:00)
[2017-07-01] MEDS: Albuterol 2.5 MG/3 ML NEBULIZER IH SCH ×3 (00:30→15:25)
[2017-07-01] MEDS: Ipratropium/Albuterol Neb 3 ML IH SCH ×3 (03:40→15:25)
[2017-07-01 04:50] VITALS: BP 107/53
[2017-07-01] MEDS: *HR* Heparin 5,000 UNIT/ML VIAL SQ SCH (05:11)
[2017-07-01] MEDS ORDERED: Lactobacillus 1 EACH CAP.SPRINK PO SCH (09:00)
[2017-07-01] MEDS: Insulin LISPRO 300 UNITS/3 ML VIAL SQ SCH ×2 (09:08→11:54)
[2017-07-01] MEDS: Aspirin Enteric Coated 81 MG Tablet PO SCH (09:10)
[2017-07-01] MEDS: Potassium Citrate 10 MEQ TABLET.ER PO SCH (09:10)
[2017-07-01] MEDS: Vancomycin Oral Soln 250 MG/2.5 ML UDC PO SCH ×2 (09:10→12:54)
[2017-07-01] MEDS: Lisinopril 20 MG TABLET PO SCH (09:10)
[2017-07-01 11:21] LABS: Basophils # 0.1 K/mcL (0.0-0.2); Basophils % 0.4 %; Eosinophils # 0.5 K/mcL (0.0-0.6); Eosinophils % 3.5 %; Hematocrit 36.7 % (35.3-44.9); Hemoglobin 11.5 g/dL (11.5-15.4); Immature Granulocytes % 1.2 % (0-4); Lymphocytes % 30.6 %; Mean Corpuscular HGB Conc 31.3 g/dL (31.6-35.5); Mean Corpuscular Hemoglobin 27.4 pg (28.0-33.3); Mean Corpuscular Volume 87.4 fL (83.0-100.0); Mean Platelet Volume 9.8 fL (9.4-12.4); Monocytes # 1.2 K/mcL (0.0-1.3); Monocytes % 9.2 %; Neutrophils # 7.1 K/mcL (1.6-8.9); Platelet Count 248 K/mcL (140-400); Red Cell Distribution Width 15.9 % (11.5-14.5); Segmented Neutrophils % 55.1 %
--- NOTE | 2017-07-01 11:34 | Discharge Summary ---
Date of Encounter: 07/01/17 Time of Encounter: 10:50 - Discharge Diagnosis (1) C. difficile colitis Priority: Primary Status: Acute (2) Sepsis Priority: Secondary Status: Resolved Qualifiers: Sepsis type: sepsis due to unspecified organism Qualified Code(s): A41.9 - Sepsis, unspecified organism (3) Asthma Priority: Secondary Status: Chronic Qualifiers: Asthma severity: mild persistent Asthma complication type: uncomplicated Qualified Code(s): J45.30 - Mild persistent asthma, uncomplicated (4) Hypomagnesemia Priority: Secondary Status: Resolved (5) Diabetes Priority: Secondary Status: Chronic Qualifiers: Diabetes mellitus type: type 2 Diabetes mellitus complication status: without complication Diabetes mellitus halfway insulin use: without intermediate school teacher use Qualified Code(s): E11.9 - Type 2 diabetes mellitus without complications (6) Hypertension Priority: Secondary Status: Chronic Qualifiers: Hypertension type: essential hypertension Qualified Code(s): I10 - Essential (primary) hypertension - Discharge Medications Prescriptions: Lactobacillus [Culturelle] 2 each PO DAILY #30 Vancomycin Oral Soln [Vancocin] 125 mg PO QID 13 Days Home Medications: Albuterol Neb [Proventil Neb] 2.5 mg IH TID 06/29/17 [History] Albuterol Sulfate [Proair Hfa] 2 puff IH Q4H PRN 06/29/17 [History] Alogliptin Benzoate [Alogliptin] 25 mg PO DAILY 06/29/17 [History] Aspirin Enteric Coated [Aspirin EC] 81 mg PO DAILY 06/29/17 [History] Azelastine 0.1% Nasal [place] [Astelin] 1 spray NS BID 06/29/17 [History] Carvedilol 12.5 mg PO DAILY 06/29/17 [History] Citalopram [CeleXA] 20 mg PO DAILY 06/29/17 [History] Fluticasone Propionate [Flovent Hfa] 1 puff IH BID 06/29/17 [History] Furosemide [Lasix] 20 mg PO BID 06/29/17 [History] Lansoprazole [Prevacid] 30 mg PO DAILY 06/29/17 [History] Loratadine [Claritin] 10 mg PO DAILY 06/29/17 [History] Mirtazapine [Remeron] 45 mg PO HS 06/29/17 [History] Mometasone/Formoterol [Dulera 200 Mcg/5 Mcg Inhaler] 2 puff IH BID 06/29/17 [ History] Montelukast [Singulair] 10 mg PO HS 06/29/17 [History] Potassium Citrate [Urocit-K] 10 meq PO BID 06/29/17 [History] Quinapril HCl [Accupril] 40 mg PO DAILY 06/29/17 [History] Vancomycin Oral Soln [Vancocin] 125 mg PO QID 13 Days 06/30/17 [Rx] Diclofenac Sodium [Voltaren] 75 mg PO BID PRN #0 07/01/17 [Rx] Lactobacillus [Culturelle] 2 each PO DAILY #30 07/01/17 [Rx] Allergies/Adverse Reactions: 3 Allergy/AdvReac Type Severity Reaction Status Date / Time Cefaclor [From Ceclor] AdvReac Hives Verified 06/29/17 18:09 clarithromycin [From Biaxin] AdvReac Hives Verified 06/29/17 18:09 morphine AdvReac Vomiting Verified 06/29/17 18:09 Date of admission: 06/29/17 23:36 Primary care physician: PCP NONE Consults: None Discharging clinician: Jewel Barron Anticipated date of discharge: 07/01/17 - Patient Status Disposition: Home, Self-Care Condition: Good Functional capacity at discharge: uses cane/walker Overall status at discharge: patient is back to baseline - Discharge Instructions Follow Up With: NONE,PCP [Primary Care Provider] - - Diet and Activity Activity: increase activity as tolerated, resume usual activities as tolerated Diet: advance to your usual diet Hospital course: Ms. Ramirez is a 62 year old female who presented to the emergency room with a complaint of fever. The patient had used multiple courses of antibiotics prior to presenting to the emergency room for about 2 weeks due to a urinary tract infection and bronchitis. The patient had a temperature of 103.3 degrees Fahrenheit associated with watery, foul-smelling and nonbloody diarrhea. The patient was admitted to the hospital with the diagnoses of sepsis as she had a white count of 25,000 with tachycardia. She was placed on broad-spectrum and medical therapy. Given her history of diarrhea, she was also started on by mouth vancomycin due to suspicion of severe Clostridium difficile infection. Her stool samples were positive for C. difficile. Her broad-spectrum antibodies were discussed and reviewed and she was continued on by mouth vancomycin. Her diarrhea resolved and her symptoms improved dramatically with resolution of her white count. Hence, she has been deemed stable to be discharged home. She has been given prescription for vancomycin to finish a two -week course. She has also been given a prescription for probiotics. As the patient is currently stable and her sepsis has resolved, she will be discharged home today. - Time Spent with Patient Total time spent providing and/or coordinating discharge services: Greater than 30 minutes (40 min) - Constitutional Vitals: Temp Pulse Resp BP Pulse Ox 98.3 F 70 24 107/53 96 07/01/17 04:49 07/01/17 04:49 07/01/17 11:16 07/01/17 04:49 07/01/17 11:16 Exam: Gen.: Lying in bed. No acute distress. Chest: Clear to auscultation bilaterally. No adventitious sounds present. CVS: First and second heart sounds present. No murmurs, rubs or gallops. Abdomen: Soft, nontender, nondistended. Bowel sounds present. No hepatosplenomegaly.
== END 2017-07-01 15:05 | disposition home or self-care (01) | DRG 720 ==
LOC: 2NENU 17:54 → EMEROO 17:54 → 2NENU 22:25
PROVIDERS: ADMIT Internal Medicine Hematology & Oncology; ATTEND Internal Medicine